=== PATIENT | male | born 1930 | race Two or more races ===

== ENCOUNTER 2017-09-13 01:33 | Inpatient (IN) | payer OTHER, MEDICAID ==
[~2017-09-13] VITALS: Ht 165.1 cm; Wt 99.3 kg
[2017-09-13] VITALS (9 sets, daily range): BP systolic 83–146; BP diastolic 35–106
[2017-09-13] MEDS ORDERED: ACETAMINOPHEN 325 MG TAB PO ONE (02:00)
[2017-09-13 02:43] LABS: Basophils # (auto) 0 uL; Basophils % (auto) 0.4 % (0.0-2.0); Eosinophils # (auto) 0 uL; Eosinophils % (auto) 0.1 % (0.0-7.0); Hematocrit 34.9 % (41.0-53.0); Hemoglobin 11.6 g/dL (13.5-17.5); Lymphocytes # (auto) 0.4 uL; Mean Corpuscular Hemoglobin 32.3 pg (28.0-32.0); Mean Corpuscular Hgb Conc. 33.4 g/dL (32.0-36.0); Mean Corpuscular Volume 96.8 fL (80.0-100.0); Monocytes # (auto) 0.1 uL; Monocytes % (auto) 1.3 % (0.0-12.0); Neutrophils # (auto) 6.4 uL; Neutrophils % (auto) 92.2 % (37.0-80.0); Platelet Count (auto) 138 10^3/uL (140-450); Red Blood Cells 3.61 10^6/uL (4.5-5.90); White Blood Cell 6.9 10^3/uL (4.4-10.8)
[2017-09-13 02:59] LABS: INR 1.07 (0.9-1.15); Partial Thromboplastin Time 26.1 sec (23.78-33.04); Prothrombin Time 11.4 sec (9.27-12.13)
[2017-09-13 03:01] LABS: Alanine Aminotransferase 49 U/L (16-61); Albumin 2.6 g/dL (3.4-5.0); Anion Gap 12 (5-15); Aspartate Aminotransferase 62 U/L (15-37); BUN/Creatinine Ratio 28.7; Blood Alcohol < 3.0 mg/dL (0-5); Blood Urea Nitrogen 39 mg/dL (7-18); Calcium 7.7 mg/dL (8.5-10.1); Carbon Dioxide 21 mmol/L (21-32); Chloride 104 mmol/L (98-107); GFR African American 64 mL/min; GFR Non-African American 53 mL/min; Glucose 93 mg/dL (74-106); Potassium 3.5 mmol/L (3.5-5.1); Sodium 137 mmol/L (136-145)
[2017-09-13 03:17] LABS: Alkaline Phosphatase 214 U/L (45-117); Bilirubin, Total 1.1 mg/dL (0.2-1.0)
[2017-09-13] MEDS ORDERED: ENOXAPARIN SOD 100 MG/1 ML SYRINGE SC ONE (03:45)
[2017-09-13] MEDS ORDERED: ASPirin 81 mg TAB PO ONE (03:45)
[2017-09-13] MEDS ORDERED: SODIUM CHLORIDE 0.9% 1,000 ML IV ONE ×2 (04:45→10:45)
[2017-09-13] MEDS ORDERED: HYDROcodone-ACET 5/325MG TAB PO PRN (05:45)
[2017-09-13] MEDS ORDERED: ACETAMINOPHEN 325 MG TAB PO PRN (05:45)
[2017-09-13] MEDS ORDERED: MORPHINE SULF INJ 2 MG/ML SYRINGE 1ML IV PRN ×2 (05:45→14:30)
[2017-09-13] MEDS ORDERED: ONDANSETRON HCL 4 MG/2 ML VIAL IV PRN (05:45)
[2017-09-13] MEDS ORDERED: NITROGLYCERIN 0.4 MG SL TAB SL PRN ×2 (05:45→14:30)
[2017-09-13] MEDS ORDERED: metroNIDAZOLE 500MG/100ML 100 ML IV SCH (06:00)
[2017-09-13] MEDS: SODIUM CHLORIDE 0.9% 1,000 ML IV SCH ×2 (06:07→15:45)
[2017-09-13] MEDS ORDERED: cefTRIAXone 1GM/10ml IVPUSH 10 ML IV SCH (09:00)
[2017-09-13] MEDS: PANTOPRAZOLE 40 MG/10 ML VIAL IV SCH (09:18)
[2017-09-13] MEDS: ASPirin 81 mg TAB PO SCH (09:18)
[2017-09-13] MEDS ORDERED: POTASSIUM CHL 20 Meq TABLET PO ONE (10:45)
[2017-09-13] MEDS: ALBUMIN 25% 100 ML IV SCH ×3 (12:12→23:08)
[2017-09-13] MEDS: metroNIDAZOLE 500MG/100ML 100 ML IV SCH ×2 (14:52→23:06)
[2017-09-13 15:38] LABS: Urine Amorphous Crystal FEW /hpf (None Seen); Urine Bacteria FEW /hpf (None Seen); Urine Blood TRACE /uL (Negative); Urine Hyaline Cast MANY /lpf (0 - 2); Urine Mucus FEW (None Seen); Urine Specific Gravity 1.018 (1.001-1.035); Urine WBC 6 /hpf (0 - 3)
[2017-09-13] MEDS ORDERED: ALBUTEROL SULF 2.5 MG/0.5ML(0.5%) NEB SOLN ONE (21:35)
[2017-09-13] MEDS ORDERED: IPRATROPIUM BROM 0.5 MG/2.5ML INH SOL ONE (21:36)
[2017-09-13] MEDS ORDERED: SUCCINYLCHOLINE CHLORIDE 20 MG/ML 10ML VIAL IV ONE ×2 (21:42→22:00)
[2017-09-13] MEDS ORDERED: ETOMIDATE (2MG/ML) 20ML VIAL IV ONE ×2 (21:42→22:00)
[2017-09-13] MEDS ORDERED: ALBUTEROL SULF 2.5 MG/0.5ML(0.5%) NEB SOLN NEB ONE (21:45)
[2017-09-13] MEDS ORDERED: methylPREDNISolone SOD SUCC 125 MG/2 ML VL ONE (21:47)
[2017-09-13] MEDS ORDERED: LORazepam 2MG/ML-1ML VIAL ONE (21:53)
[2017-09-13] MEDS ORDERED: ENOXAPARIN SOD 80 MG/0.8ML SYRINGE SC SCH (22:00)
[2017-09-13] MEDS ORDERED: LORazepam 2MG/ML-1ML VIAL IV ONE (22:00)
[2017-09-13] MEDS ORDERED: methylPREDNISolone SOD SUCC 125 MG/2 ML VL IV ONE (22:00)
[2017-09-13] MEDS ORDERED: PROPOFOL 100 ML IV ONE ×2 (22:20→23:56)
[2017-09-13 22:26] LABS: Albumin 3.5 g/dL (3.4-5.0); BUN/Creatinine Ratio 26.4; Calcium 7.3 mg/dL (8.5-10.1); Potassium 4.2 mmol/L (3.5-5.1)
[2017-09-13] MEDS ORDERED: MIDAZOLAM DRIP 50 mg/50mL 50 ML IV ONE (22:40)
[2017-09-13 22:43] LABS: Bilirubin, Total 1.3 mg/dL (0.2-1.0); Total Protein 7.2 g/dL (6.4-8.2)
[2017-09-14] VITALS (103 sets, daily range): BP systolic 80–131; BP diastolic 35–90
[2017-09-14] MEDS ORDERED: NOREPINEPHRINE 8 MG/250ML KIT 250 ML IV ONE (00:30)
[2017-09-14] MEDS: NOREPINEPHRINE 8 MG/250ML KIT 250 ML IV SCH (00:42)
[2017-09-14] MEDS ORDERED: SODIUM BICARBONATE 50ML VIAL 50 ML in SOD CHL 0.45% 1,000 ML IV SCH (00:45)
[2017-09-14] MEDS ORDERED: SODIUM BICARBONATE 8.4 % INJ 50ML VIAL IV ONE (01:18)
[2017-09-14 04:16] LABS: Hematocrit 33.8 % (41.0-53.0); Hemoglobin 11.2 g/dL (13.5-17.5); Mean Corpuscular Hemoglobin 32.5 pg (28.0-32.0); Mean Corpuscular Hgb Conc. 33.2 g/dL (32.0-36.0); Platelet Count (auto) 134 10^3/uL (140-450); Red Blood Cells 3.45 10^6/uL (4.5-5.90); Red Cell Distribution Width 13.5 % (11.8-14.3); White Blood Cell 22.5 10^3/uL (4.4-10.8)
[2017-09-14 04:18] LABS: Calcium 7.5 mg/dL (8.5-10.1)
[2017-09-14 04:22] LABS: Albumin 3.5 g/dL (3.4-5.0); BUN/Creatinine Ratio 28.2
[2017-09-14 04:23] LABS: Bilirubin, Total 1.7 mg/dL (0.2-1.0); Total Protein 6.7 g/dL (6.4-8.2)
[2017-09-14 04:35] LABS: Basophils % (manual) 0 (0.0-2.0); Blast Cells 0; Eosinophils % (manual) 0 (0-7); Myelocytes % 0; Promyelocytes % 0; Reactive Lymphocytes 0
[2017-09-14] MEDS: PROPOFOL 100 ML IV SCH ×3 (05:08→14:31)
[2017-09-14 05:32] LABS: Band Neutrophils % (manual) 18; Lymphocytes % (manual) 2 (10.0-50.0); Metamyelocytes % 3; Monocytes % (manual) 3 (0-12)
[2017-09-14] MEDS: metroNIDAZOLE 500MG/100ML 100 ML IV SCH (06:08)
[2017-09-14] MEDS: ALBUMIN 25% 100 ML IV SCH ×3 (06:08→11:00)
[2017-09-14] MEDS ORDERED: PIPERACILLIN-TAZOB 3.375GM 100 ML IV ONE (06:45)
[2017-09-14] MEDS ORDERED: VANCOMYCIN PER PHARMACY 0 MG IV SCH (06:45)
[2017-09-14] MEDS: SODIUM BICARBONATE 50ML VIAL 50 ML in SOD CHL 0.45% 1,000 ML IV SCH ×2 (06:45→17:22)
[2017-09-14] MEDS ORDERED: VANCOMYCIN 1GM/250ML 250 ML IV ONE (09:00)
[2017-09-14] MEDS: ENOXAPARIN SOD 100 MG/1 ML SYRINGE SC SCH (10:00)
[2017-09-14] MEDS: PANTOPRAZOLE 40 MG/10 ML VIAL IV SCH (10:00)
[2017-09-14] MEDS: ASPirin 81 mg TAB PO SCH (10:00)
[2017-09-14] MEDS: PIPERACILLIN-TAZOB 2.25GM 50 ML IV SCH ×2 (12:00→17:35)
[2017-09-14] MEDS: DOXYCYCLINE 100MG/250ML 250 ML IV SCH (14:22)
[2017-09-14] MEDS: VANCOMYCIN HCL 125MG/5ML ORAL SOL PO SCH ×2 (18:00→22:29)
[2017-09-14 18:33] LABS: BUN/Creatinine Ratio 27.2; Calcium 7.2 mg/dL (8.5-10.1); Potassium 4.5 mmol/L (3.5-5.1)
[2017-09-15] VITALS (101 sets, daily range): BP systolic 92–163; BP diastolic 35–108
[2017-09-15] MEDS: PIPERACILLIN-TAZOB 2.25GM 50 ML IV SCH ×4 (00:12→18:22)
[2017-09-15] MEDS: PROPOFOL 100 ML IV SCH (00:12)
[2017-09-15] MEDS: NOREPINEPHRINE 8 MG/250ML KIT 250 ML IV SCH ×2 (00:18→10:15)
[2017-09-15] MEDS: DOXYCYCLINE 100MG/250ML 250 ML IV SCH ×2 (02:00→14:49)
[2017-09-15 04:16] LABS: Basophils # (auto) 0 uL; Eosinophils # (auto) 0 uL; Eosinophils % (auto) 0.1 % (0.0-7.0); Hemoglobin 10.8 g/dL (13.5-17.5); Lymphocytes % (auto) 4.8 % (10.0-50.0); Mean Corpuscular Hemoglobin 31.9 pg (28.0-32.0); Mean Corpuscular Hgb Conc. 32.9 g/dL (32.0-36.0); Mean Corpuscular Volume 97.2 fL (80.0-100.0); Monocytes # (auto) 0.5 uL; Monocytes % (auto) 2.5 % (0.0-12.0); Neutrophils # (auto) 18.6 uL; Neutrophils % (auto) 92.6 % (37.0-80.0); Nucleated Red Blood Cells % 0.1 %; Platelet Count (auto) 126 10^3/uL (140-450); Red Blood Cells 3.39 10^6/uL (4.5-5.90); Red Cell Distribution Width 13.9 % (11.8-14.3); White Blood Cell 20.1 10^3/uL (4.4-10.8)
[2017-09-15 04:31] LABS: Albumin 3.7 g/dL (3.4-5.0); BUN/Creatinine Ratio 27.5; Bilirubin, Direct 0.6 mg/dL (0-0.2); Calcium 7.2 mg/dL (8.5-10.1); Magnesium 2.4 mg/dL (1.6-2.6); Phosphorus 3.2 mg/dL (2.5-4.90); Potassium 4.4 mmol/L (3.5-5.1); Total Protein 6.8 g/dL (6.4-8.2); Uric Acid 7.6 mg/dL (3.5-7.2)
[2017-09-15] MEDS: VANCOMYCIN HCL 125MG/5ML ORAL SOL PO SCH ×4 (05:46→21:56)
[2017-09-15] MEDS: SODIUM BICARBONATE 50ML VIAL 50 ML in SOD CHL 0.45% 1,000 ML IV SCH ×3 (05:46→17:37)
[2017-09-15] MEDS: ASPirin 81 mg TAB PO SCH (09:28)
[2017-09-15] MEDS: PANTOPRAZOLE 40 MG/10 ML VIAL IV SCH (09:28)
[2017-09-15] MEDS: ENOXAPARIN SOD 100 MG/1 ML SYRINGE SC SCH (09:28)
[2017-09-16] MEDS: PIPERACILLIN-TAZOB 2.25GM 50 ML IV SCH ×5 (00:09→23:16)
[2017-09-16] MEDS: DOXYCYCLINE 100MG/250ML 250 ML IV SCH ×2 (01:51→14:27)
[2017-09-16] MEDS: SODIUM BICARBONATE 50ML VIAL 50 ML in SOD CHL 0.45% 1,000 ML IV SCH (02:50)
[2017-09-16] MEDS: PROPOFOL 100 ML IV SCH (03:44)
[2017-09-16 04:00] VITALS: BP 147/81
[2017-09-16 04:48] LABS: Hematocrit 35.6 % (41.0-53.0); Hemoglobin 11.7 g/dL (13.5-17.5); Mean Corpuscular Hemoglobin 31.9 pg (28.0-32.0); Mean Corpuscular Hgb Conc. 32.9 g/dL (32.0-36.0); Platelet Count (auto) 131 10^3/uL (140-450); Red Blood Cells 3.67 10^6/uL (4.5-5.90); Red Cell Distribution Width 13.7 % (11.8-14.3); White Blood Cell 16.2 10^3/uL (4.4-10.8)
[2017-09-16 04:50] LABS: Basophils % (manual) 0 (0.0-2.0); Blast Cells 0; Eosinophils % (manual) 0 (0-7); Metamyelocytes % 0; Myelocytes % 0; Promyelocytes % 0; Reactive Lymphocytes 0
[2017-09-16 05:04] LABS: Calcium 7.3 mg/dL (8.5-10.1); Potassium 4.2 mmol/L (3.5-5.1)
[2017-09-16 06:01] LABS: Band Neutrophils % (manual) 5; Lymphocytes % (manual) 2 (10.0-50.0); Monocytes % (manual) 3 (0-12)
[2017-09-16] MEDS: VANCOMYCIN HCL 125MG/5ML ORAL SOL PO SCH ×4 (06:03→22:00)
[2017-09-16] MEDS ORDERED: SODIUM BICARBONATE 50ML VIAL 50 ML in SOD CHL 0.45% 1,000 ML IV SCH (09:45)
[2017-09-16] MEDS: NOREPINEPHRINE 8 MG/250ML KIT 250 ML IV SCH (10:15)
[2017-09-16 10:33] LABS: Sodium Urine 24 mmol/L (40-220)
[2017-09-16] MEDS: ASPirin 81 mg TAB PO SCH (10:35)
[2017-09-16] MEDS: PANTOPRAZOLE 40 MG/10 ML VIAL IV SCH (10:35)
[2017-09-16] MEDS: ENOXAPARIN SOD 100 MG/1 ML SYRINGE SC SCH (10:35)
[2017-09-16 10:41] LABS: Protein, Urine 22.2 mg/dL (0.0-11.9)
[2017-09-16 10:59] LABS: Urine Bacteria FEW /hpf (None Seen); Urine Blood 2+ /uL (Negative); Urine Mucus FEW (None Seen); Urine Specific Gravity 1.014 (1.001-1.035); Urine WBC 12 /hpf (0 - 3)
[2017-09-16] MEDS ORDERED: MORPHINE SULF INJ 2 MG/ML SYRINGE 1ML IV PRN (13:15)
[2017-09-16] MEDS ORDERED: HYDROcodone-ACET 5/325MG TAB PO PRN (13:15)
[2017-09-16] MEDS ORDERED: CHOLECALCIFEROL (VITD3) 1,000 UNIT TAB PO ONE (13:30)
[2017-09-16] MEDS: SODIUM CHLORIDE 0.9% 1,000 ML IV SCH (14:26)
[2017-09-16 16:00] VITALS: BP 135/70
[2017-09-16 20:12] VITALS: BP 115/57
[2017-09-17 00:27] VITALS: BP 126/62
[2017-09-17] MEDS: DOXYCYCLINE 100MG/250ML 250 ML IV SCH (01:33)
[2017-09-17] MEDS: SODIUM CHLORIDE 0.9% 1,000 ML IV SCH (01:34)
[2017-09-17] MEDS: TEMAZEPAM 15 MG CAP PO PRN ×2 (03:42→21:23)
[2017-09-17 04:00] VITALS: BP 105/52
[2017-09-17 05:04] LABS: Hematocrit 36.6 % (41.0-53.0); Hemoglobin 12.1 g/dL (13.5-17.5); Mean Corpuscular Hemoglobin 31.9 pg (28.0-32.0); Mean Corpuscular Volume 96.8 fL (80.0-100.0); Platelet Count (auto) 138 10^3/uL (140-450); Red Blood Cells 3.78 10^6/uL (4.5-5.90); Red Cell Distribution Width 13.9 % (11.8-14.3); White Blood Cell 20.5 10^3/uL (4.4-10.8)
[2017-09-17 05:15] LABS: Basophils % (manual) 0 (0.0-2.0); Blast Cells 0; Eosinophils % (manual) 0 (0-7); Metamyelocytes % 0; Myelocytes % 0; Promyelocytes % 0; Reactive Lymphocytes 0
[2017-09-17 05:21] LABS: BUN/Creatinine Ratio 34.3; Calcium 7.2 mg/dL (8.5-10.1); Potassium 3.8 mmol/L (3.5-5.1)
[2017-09-17] MEDS: VANCOMYCIN HCL 125MG/5ML ORAL SOL PO SCH ×5 (06:00→21:23)
[2017-09-17] MEDS: PIPERACILLIN-TAZOB 2.25GM 50 ML IV SCH ×3 (06:42→18:19)
[2017-09-17 07:02] LABS: Band Neutrophils % (manual) 5; Lymphocytes % (manual) 4 (10.0-50.0); Monocytes % (manual) 4 (0-12)
[2017-09-17 08:00] VITALS: BP 141/57
[2017-09-17] MEDS: ENOXAPARIN SOD 100 MG/1 ML SYRINGE SC SCH ×2 (11:07→21:22)
[2017-09-17] MEDS: CHOLECALCIFEROL (VITD3) 1,000 UNIT TAB PO SCH (11:07)
[2017-09-17] MEDS: ASPirin 81 mg TAB PO SCH (11:08)
[2017-09-17 12:00] VITALS: BP 118/59
[2017-09-17 14:20] LABS: Alanine Aminotransferase 112 U/L (16-61); Aspartate Aminotransferase 93 U/L (15-37)
[2017-09-17 21:36] VITALS: BP 132/61
[2017-09-18] MEDS: PIPERACILLIN-TAZOB 2.25GM 50 ML IV SCH ×5 (00:14→23:37)
[2017-09-18 05:00] VITALS: BP 155/77
[2017-09-18] MEDS: VANCOMYCIN HCL 125MG/5ML ORAL SOL PO SCH (05:29)
[2017-09-18 05:32] LABS: Hematocrit 40.5 % (41.0-53.0); Hemoglobin 13.3 g/dL (13.5-17.5); Mean Corpuscular Hemoglobin 32.3 pg (28.0-32.0); Mean Corpuscular Hgb Conc. 32.9 g/dL (32.0-36.0); Mean Corpuscular Volume 98.3 fL (80.0-100.0); Platelet Count (auto) 148 10^3/uL (140-450); Red Blood Cells 4.12 10^6/uL (4.5-5.90); Red Cell Distribution Width 14.3 % (11.8-14.3); White Blood Cell 15.6 10^3/uL (4.4-10.8)
[2017-09-18 05:46] LABS: Basophils % (manual) 0 (0.0-2.0); Blast Cells 0; Eosinophils % (manual) 0 (0-7); Myelocytes % 0; Promyelocytes % 0; Reactive Lymphocytes 0
[2017-09-18 05:53] LABS: BUN/Creatinine Ratio 36.8; Calcium 7.6 mg/dL (8.5-10.1); Potassium 3.8 mmol/L (3.5-5.1)
[2017-09-18 06:44] LABS: Band Neutrophils % (manual) 2; Lymphocytes % (manual) 11 (10.0-50.0); Metamyelocytes % 6; Monocytes % (manual) 6 (0-12)
[2017-09-18] MEDS: LORazepam 0.5 MG TAB PO PRN (07:13)
[2017-09-18 09:00] VITALS: BP 156/59
[2017-09-18] MEDS: ENOXAPARIN SOD 100 MG/1 ML SYRINGE SC SCH ×2 (10:25→21:42)
[2017-09-18] MEDS: ASPirin 81 mg TAB PO SCH (10:26)
[2017-09-18] MEDS: CHOLECALCIFEROL (VITD3) 1,000 UNIT TAB PO SCH (10:26)
[2017-09-18 13:00] VITALS: BP 149/80
[2017-09-18 16:00] VITALS: BP 155/59
[2017-09-18] MEDS: TEMAZEPAM 15 MG CAP PO PRN (21:42)
[2017-09-18 22:00] VITALS: BP 139/60
[2017-09-19] MEDS: LORazepam 0.5 MG TAB PO PRN ×2 (03:22→23:40)
[2017-09-19 04:58] VITALS: BP 150/82
[2017-09-19 05:39] LABS: Hemoglobin 12.4 g/dL (13.5-17.5); Mean Corpuscular Hemoglobin 32.8 pg (28.0-32.0); Mean Corpuscular Hgb Conc. 33.5 g/dL (32.0-36.0); Mean Corpuscular Volume 97.8 fL (80.0-100.0); Platelet Count (auto) 158 10^3/uL (140-450); Red Blood Cells 3.78 10^6/uL (4.5-5.90); Red Cell Distribution Width 13.7 % (11.8-14.3); White Blood Cell 13.6 10^3/uL (4.4-10.8)
[2017-09-19 05:54] LABS: Basophils % (manual) 0 (0.0-2.0); Blast Cells 0; Myelocytes % 0; Promyelocytes % 0; Reactive Lymphocytes 0
[2017-09-19 06:04] LABS: Albumin 2.6 g/dL (3.4-5.0); BUN/Creatinine Ratio 32.4; Bilirubin, Direct 0.2 mg/dL (0-0.2); Bilirubin, Total 0.6 mg/dL (0.2-1.0); Calcium 8.2 mg/dL (8.5-10.1); Potassium 4.2 mmol/L (3.5-5.1); Total Protein 5.8 g/dL (6.4-8.2)
[2017-09-19] MEDS: PIPERACILLIN-TAZOB 2.25GM 50 ML IV SCH ×4 (06:38→23:40)
[2017-09-19 07:39] LABS: Band Neutrophils % (manual) 1; Eosinophils % (manual) 5 (0-7); Lymphocytes % (manual) 12 (10.0-50.0); Metamyelocytes % 3; Monocytes % (manual) 9 (0-12)
[2017-09-19 09:00] VITALS: BP 117/58
[2017-09-19] MEDS: CHOLECALCIFEROL (VITD3) 1,000 UNIT TAB PO SCH (09:24)
[2017-09-19] MEDS: ENOXAPARIN SOD 100 MG/1 ML SYRINGE SC SCH ×2 (09:24→21:54)
[2017-09-19] MEDS: ASPirin 81 mg TAB PO SCH (09:24)
[2017-09-19] MEDS ORDERED: IOHEXOL 350 MG/ML 100ML IJ ONE (10:52)
[2017-09-19 12:40] VITALS: BP 141/64
[2017-09-19 17:00] VITALS: BP 154/78
[2017-09-19] MEDS: TEMAZEPAM 15 MG CAP PO PRN (21:55)
[2017-09-19 22:00] VITALS: BP 146/62
[2017-09-20 05:00] VITALS: BP 149/75
[2017-09-20] MEDS: PIPERACILLIN-TAZOB 2.25GM 50 ML IV SCH ×3 (05:27→18:50)
[2017-09-20 05:52] LABS: Hematocrit 36.5 % (41.0-53.0); Hemoglobin 12.1 g/dL (13.5-17.5); Mean Corpuscular Hemoglobin 32.3 pg (28.0-32.0); Mean Corpuscular Hgb Conc. 33.2 g/dL (32.0-36.0); Mean Corpuscular Volume 97.4 fL (80.0-100.0); Platelet Count (auto) 182 10^3/uL (140-450); Red Blood Cells 3.75 10^6/uL (4.5-5.90); Red Cell Distribution Width 13.7 % (11.8-14.3); White Blood Cell 12.6 10^3/uL (4.4-10.8)
[2017-09-20 06:01] LABS: INR 1.01 (0.9-1.15); Partial Thromboplastin Time 33.6 sec (23.78-33.04); Prothrombin Time 10.8 sec (9.27-12.13)
[2017-09-20 06:21] LABS: BUN/Creatinine Ratio 28.4; Calcium 8.7 mg/dL (8.5-10.1); Potassium 4.1 mmol/L (3.5-5.1)
[2017-09-20 06:34] LABS: Basophils % (manual) 0 (0.0-2.0); Blast Cells 0; Metamyelocytes % 0; Myelocytes % 0; Promyelocytes % 0; Reactive Lymphocytes 0
[2017-09-20 07:46] LABS: Band Neutrophils % (manual) 5; Eosinophils % (manual) 4 (0-7); Lymphocytes % (manual) 13 (10.0-50.0); Monocytes % (manual) 6 (0-12)
[2017-09-20 08:51] VITALS: BP 149/60
[2017-09-20] MEDS: CHOLECALCIFEROL (VITD3) 1,000 UNIT TAB PO SCH (10:00)
[2017-09-20] MEDS: ASPirin 81 mg TAB PO SCH (10:00)
[2017-09-20] MEDS: ENOXAPARIN SOD 100 MG/1 ML SYRINGE SC SCH ×2 (10:00→22:18)
[2017-09-20] MEDS ORDERED: IODIXANOL 320MG/ML 100ML BTL IV ONE ×2 (10:04→12:20)
[2017-09-20] MEDS ORDERED: LIDOCAINE 2% (LOCAL ANESTH.) PF 5ml SDV ONE (10:04)
[2017-09-20] MEDS ORDERED: ANGIOMAX 250 MG VIAL IV ONE (12:18)
[2017-09-20] MEDS ORDERED: EPINEPHrine HCL 1 MG/10 ML SYRG ONE (12:19)
[2017-09-20] MEDS ORDERED: SODIUM CHL 0.9% 0 ML ONE (12:19)
[2017-09-20] MEDS ORDERED: ATROPINE SULF 1 MG/10ml SYR ONE (12:19)
[2017-09-20] MEDS ORDERED: fentaNYL CITRATE 100 MCG/2 ML VL ONE (12:19)
[2017-09-20] MEDS ORDERED: MIDAZOLAM HCL 1MG/1ML-2 ML VIAL ONE (12:19)
[2017-09-20 13:00] VITALS: BP 143/79
[2017-09-20 16:59] VITALS: BP 162/61
[2017-09-20 21:53] VITALS: BP 152/71
[2017-09-20] MEDS: TEMAZEPAM 15 MG CAP PO PRN (22:18)
[2017-09-20 22:33] LABS: Urine Bacteria NONE SEEN /hpf (None Seen); Urine Blood 3+ /uL (Negative); Urine Mucus FEW (None Seen); Urine Specific Gravity 1.022 (1.001-1.035); Urine WBC 2 /hpf (0 - 3)
[2017-09-21] MEDS: PIPERACILLIN-TAZOB 2.25GM 50 ML IV SCH ×3 (00:07→12:00)
[2017-09-21 04:40] VITALS: BP 152/76
[2017-09-21 06:25] LABS: Hematocrit 33.5 % (41.0-53.0); Hemoglobin 11.4 g/dL (13.5-17.5); Mean Corpuscular Hemoglobin 32.9 pg (28.0-32.0); Mean Corpuscular Volume 96.8 fL (80.0-100.0); Platelet Count (auto) 194 10^3/uL (140-450); Red Blood Cells 3.46 10^6/uL (4.5-5.90); Red Cell Distribution Width 13.6 % (11.8-14.3); White Blood Cell 11.1 10^3/uL (4.4-10.8)
[2017-09-21 06:36] LABS: Basophils % (manual) 0 (0.0-2.0); Blast Cells 0; Metamyelocytes % 0; Myelocytes % 0; Promyelocytes % 0; Reactive Lymphocytes 0
[2017-09-21 06:41] LABS: Calcium 8.5 mg/dL (8.5-10.1); Potassium 4.2 mmol/L (3.5-5.1)
[2017-09-21 07:34] LABS: Band Neutrophils % (manual) 1; Eosinophils % (manual) 2 (0-7); Lymphocytes % (manual) 12 (10.0-50.0); Monocytes % (manual) 9 (0-12)
[2017-09-21 07:45] VITALS: BP 136/67
[2017-09-21] MEDS ORDERED: CARVEDILOL 3.125 MG TAB PO SCH (10:00)
[2017-09-21] MEDS: CHOLECALCIFEROL (VITD3) 1,000 UNIT TAB PO SCH (10:27)
[2017-09-21] MEDS: ASPirin 81 mg TAB PO SCH (10:28)
[2017-09-21 11:48] VITALS: BP 136/67
== END 2017-09-21 13:15 | disposition home or self-care (01) | DRG 871 ==
LOC: EDBD 01:33 → ER 01:44 → TELE 01:45 → TELE-EAST 17:04 → ICU WEST 22:29 → DOU IN ICU 09-15 23:10 → TELE-EAST 09-17 20:04
PROVIDERS: ADMIT Nurse Practitioner; ATTEND Internal Medicine
PROC: 5A1945Z Respiratory Ventilation, 24-96 Consecutive Hours (ICD-10-PCS; principal; 2017-09-13)
PROC: 0BH17EZ Insertion of Endotracheal Airway into Trachea, Via Natural or Artificial Opening (ICD-10-PCS; 2017-09-13)
PROC: 5A09357 Assistance with Respiratory Ventilation, Less than 24 Consecutive Hours, Continuous Positive Airway Pressure (ICD-10-PCS; 2017-09-13)
PROC: 02HV33Z Insertion of Infusion Device into Superior Vena Cava, Percutaneous Approach (ICD-10-PCS; 2017-09-14)
PROC: B2111ZZ Fluoroscopy of Multiple Coronary Arteries using Low Osmolar Contrast (ICD-10-PCS; 2017-09-20)
PROC: 4A023N7 Measurement of Cardiac Sampling and Pressure, Left Heart, Percutaneous Approach (ICD-10-PCS; 2017-09-20)
PROC: B2151ZZ Fluoroscopy of Left Heart using Low Osmolar Contrast (ICD-10-PCS; 2017-09-20)
DX: A41.9 Sepsis, unspecified organism (principal); E43 Unspecified severe protein-calorie malnutrition; N17.0 Acute kidney failure with tubular necrosis; G93.41 Metabolic encephalopathy; J69.0 Pneumonitis due to inhalation of food and vomit; R65.21 Severe sepsis with septic shock; J96.00 Acute respiratory failure, unspecified whether with hypoxia or hypercapnia; I50.33 Acute on chronic diastolic (congestive) heart failure; A09 Infectious gastroenteritis and colitis, unspecified; I13.0 Hypertensive heart and chronic kidney disease with heart failure and stage 1 through stage 4 chronic kidney disease, or unspecified chronic kidney disease; J98.11 Atelectasis; N18.3 Chronic kidney disease, stage 3 (moderate); D64.9 Anemia, unspecified; E55.9 Vitamin D deficiency, unspecified; E66.01 Morbid (severe) obesity due to excess calories; E78.5 Hyperlipidemia, unspecified; I70.0 Atherosclerosis of aorta; I72.2 Aneurysm of renal artery; K29.00 Acute gastritis without bleeding; K40.20 Bilateral inguinal hernia, without obstruction or gangrene, not specified as recurrent; K57.30 Diverticulosis of large intestine without perforation or abscess without bleeding; N28.89 Other specified disorders of kidney and ureter; Z68.36 Body mass index [BMI] 36.0-36.9, adult
CPT/HCPCS: 36415; 36600; 70450; 71045; 71275; 74176; 76775; 80048; 80053; 80061; 80076; 80320; 81001; 82306; 82550; 82553; 82570; 82805; 83605; 83735; 84100; 84133; 84156; 84300; 84450; 84460; 84484; 84550; 85007; 85025; 85027; 85379; 85610; 85730; 86850; 86900; 86901; 87040; 87070; 87081; 87205; 87493; 93005; 93306; 93458; 94002; 94003; 94640; 94660; 96361; 96365; 96372; 96375; 97116; 97163; 97530; 99152; A6257; C9113; J0330; J0696; J2001; J2250; J2543; J2704; J3490; P9047; Q9967